=== PATIENT | male | born 1935 | race Hispanic/Latino ===

== ENCOUNTER → 2020-05-21 | Outpatient (CLI) | payer OTHER | END | disposition home or self-care (01) | LOC: SHCH 10:49 | PROVIDERS: ATTEND Internal Medicine Cardiovascular Disease | DX: I45.10 Unspecified right bundle-branch block (principal); R94.31 Abnormal electrocardiogram [ECG] [EKG] | CPT/HCPCS: 93306; 93356 ==

== ENCOUNTER 2020-09-01 15:18 | Observation (INO) | payer OTHER ==
[~2020-09-01] VITALS: Ht 177.8 cm; Wt 99.8 kg
[2020-09-01 15:19] VITALS: BP 105/60
[2020-09-01] MEDS ORDERED: LACTATED RINGERS 1000ML 1,000 ML IV ONE (16:00)
[2020-09-01 16:16] LABS: BASOPHILS % (AUTO) 0.3 % (0.0-5.0); EOSINOPHILS % (AUTO) 0.3 % (0.0-8.0); MEAN CORPUSCULAR HEMOGLOBIN 28.8 pg (27.0-33.0); MEAN CORPUSCULAR HGB CONC 32.2 g/dL (32.0-36.0); MEAN CORPUSCULAR VOLUME 89.3 fL (79-99); MONOCYTES % (AUTO) 5.5 % (3.0-13.0); NEUTROPHILS % (AUTO) 88.2 % (40.0-77.0); PLATELET COUNT (AUTO) 228 K/uL (130-400); RED BLOOD CELL COUNT(AUTO) 4.59 MIL/uL (4.50-6.20); WHITE BLOOD COUNT (AUTO) 11.8 K/uL (4.8-10.8)
[2020-09-01 16:29] LABS: CREATININE 0.9 mg/dL (0.5-1.5); POTASSIUM 3.8 mmol/L (3.5-5.1)
[2020-09-01 16:39] LABS: ALBUMIN 3.4 g/dL (3.5-5.0); BILIRUBIN,TOTAL 0.8 mg/dL (0.2-1.0); TOTAL PROTEIN, SERUM 7.4 g/dL (6.0-8.3)
[2020-09-01 18:25] VITALS: BP 114/60
[2020-09-01] MEDS ORDERED: ACETAMINOPHEN WITH CODEINE 1 TAB TAB PO PRN (18:30)
[2020-09-01] MEDS: 0.9%NACL 1000ML 1,000 ML IV SCH (19:09)
[2020-09-01 19:39] LABS: APPEARANCE,URINE Clear (CLEAR); BILIRUBIN,URINE Negative (NEGATIVE); COLOR,URINE Yellow (YELLOW); GLUCOSE, URINE (UA) Negative (NEGATIVE); KETONES,URINE 40 mg/dL (NEGATIVE); LEUKOCYTE ESTERASE ,URINE Small (NEGATIVE); NITRATE,URINE Negative (NEGATIVE); OCCULT BLOOD,URINE Negative (NEGATIVE); PH,URINE 6.5 (5.0-8.0); PROTEIN,URINE Trace mg/dL (NEGATIVE)
[2020-09-01 19:47] LABS: RBC,URINE 0-1 /HPF (0-1)
[2020-09-01 19:48] LABS: BACTERIA,URINE Rare /HPF (None Seen); MUCUS,URINE Rare LPF (None Seen); SQUAMOUS EPITHELIAL CELL,UR Rare /HPF (0-2)
[2020-09-01 20:10] VITALS: BP 96/45
[2020-09-01] MEDS: FAMOTIDINE 20MG TAB PO SCH (21:23)
[2020-09-01 23:59] VITALS: BP 101/46
[2020-09-02] MEDS ORDERED: LEVOFLOXACIN 500 MG/D5W 100 ML 100 ML IV SCH
[2020-09-02] MEDS ORDERED: ONDANSETRON 4MG INJ IVP PRN
[2020-09-02] MEDS ORDERED: PHARMACY COMMUNICATION MISC SCH (00:30)
[2020-09-02 04:19] VITALS: BP 107/53
[2020-09-02 05:21] LABS: HEMATOCRIT 37.2 % (42-54); MEAN CORPUSCULAR HGB CONC 31.7 g/dL (32.0-36.0); MEAN CORPUSCULAR VOLUME 91.4 fL (79-99); RED BLOOD CELL COUNT(AUTO) 4.07 MIL/uL (4.50-6.20); RED CELL DISTRIBUTION WIDTH 14.1 % (11.0-15.5)
[2020-09-02 05:51] LABS: CREATININE 0.7 mg/dL (0.5-1.5); POTASSIUM 3.6 mmol/L (3.5-5.1)
[2020-09-02] MEDS: INSULIN HUMULIN R 100 UNIT/ML 3ML SQ SCH ×2 (07:30→11:30)
[2020-09-02] MEDS: 0.9%NACL 1000ML 1,000 ML IV SCH (07:50)
[2020-09-02 08:26] VITALS: BP 114/53
[2020-09-02] MEDS ORDERED: LEVOFLOXACIN 500 MG TABLET PO SCH (09:00)
[2020-09-02] MEDS ORDERED: ENOXAPARIN SODIUM 40 MG/0.4 ML SYRINGE SQ SCH (09:00)
[2020-09-02] MEDS: FAMOTIDINE 20MG TAB PO SCH (09:58)
[2020-09-02] MEDS ORDERED: LEVO500T89 PO (15:21)
[2020-09-02] MEDS ORDERED: METR-172 PO (17:29)
== END 2020-09-02 17:59 | disposition home or self-care (01) ==
LOC: EDH 15:18 → EDHIP 18:24
PROVIDERS: ADMIT Internal Medicine Critical Care Medicine; ATTEND Internal Medicine Critical Care Medicine
DX: E86.0 Dehydration (principal); N39.0 Urinary tract infection, site not specified; I10 Essential (primary) hypertension; E11.9 Type 2 diabetes mellitus without complications; N40.0 Benign prostatic hyperplasia without lower urinary tract symptoms; E78.5 Hyperlipidemia, unspecified; E78.00 Pure hypercholesterolemia, unspecified; I25.10 Atherosclerotic heart disease of native coronary artery without angina pectoris; R55 Syncope and collapse; Z68.31 Body mass index [BMI] 31.0-31.9, adult; E66.9 Obesity, unspecified; W18.39XA Other fall on same level, initial encounter; Y93.89 Activity, other specified; Y92.89 Other specified places as the place of occurrence of the external cause; Y99.8 Other external cause status
CPT/HCPCS: 36415 ×2; 74176; 80048; 80053; 81001; 82948 ×2; 84145; 84484; 85025; 85027; 87040 ×2; 87077 ×2; 87088; 87186 ×2; 93005; 96361 ×2; 96365; 96372; 99284; G0378 ×24; J1650; J1956; J7030